=== PATIENT | female | born 1950 | race Caucasian/White ===

== ENCOUNTER 2017-05-23 10:36 | Emergency (ER) | payer OTHER ==
[~2017-05-23] VITALS: Ht 149.9 cm; Wt 71.0 kg
[~2017-05-23 10:36] MED LIST: LEVO75TA33 PO; MEDLIST; PRLSR20 PO
[2017-05-23 10:49] VITALS: TEMP 36.8; Ht 149.9 cm; Wt 71.0 kg
[2017-05-23] MEDS ORDERED: MECL1TAB40 PO (11:06)
[2017-05-23] MEDS ORDERED: LEVO50TA6 PO (11:06)
[2017-05-23] MEDS ORDERED: LATA0.5S OPR (11:06)
--- NOTE | 2017-05-23 11:23 | EMERGENCY ROOM VISIT NOTE ---
History Report prepared by Marlen: Frankie Palma Under the Supervision of: Dr. Susanna Emery D.O. First contact with patient: 11:09 Chief Complaint: ARM PAIN Stated Complaint: DIZZINESS, HEADACHE, NAUSEA, LEFT SIDE PAIN Nursing Triage Summary: pt reports intermittent headache at base of skull, dizziness, lightheadedness, nausea over past 2 days no falls, no loc some tingling in left wrist, and leg no weakness History of Present Illness The patient is a 67 year old female who presents to the Emergency Room with complaints of episodes of left hand and leg pain that started 2 days ago. She states that she also has tingling in those areas. The patient says that the pain is only around her left wrist and left hand. She says that there is no pain in her left foot. She adds that during the episodes, she gets tingling in those areas, as well as some weakness. The patient describes the weakness as "losing control". She says that she is right-handed. The patient states that the episodes last only a couple minutes, and are not related to activity, although she notes that she has started doing some exercising recently. The patient adds that yesterday, she had a one-hour episode of pain in her neck and into the base of her skull, and ever since then she has been getting the pain intermittently. She notes that she started getting nausea after that pain started. She says that she has had dizziness issues for a while, and started medication for that last summer, but has not had any other recent medication changes. The patient says that her eyes feel "tired", and light has bothered her a bit. The patient denies any chest pain or palpitations. She says that she has never had symptoms like this before. The patient notes no history of back or neck problems. She denies any changes in her bowel movements. The patient adds that she has had an increased urinary frequency over the past 2 days. The patient states that she does not currently feel any of the pain, but still feels a bit nauseous. Source of History: patient Onset: 2 days ago Position: hand (left), leg (left) Quality: other (tingling, pain) Timing: other (episodes) Associated Symptoms: + headache, + neck pain, + nausea, + urinary symptoms, + weakness (left hand and left leg), No chest pain (or palpitations) Note: Associated symptoms: Eyes feel tired. Review of Systems See HPI for pertinent positives & negatives. A total of 10 systems reviewed and were otherwise negative. Past Medical & Surgical Medical Problems: (1) Asthma (2) Gallbladder disease Family History FHx: cancer Heart disease Social History Smoking Status: Never Smoker Smokeless Tobacco Use: No Alcohol Use: none Marital Status: Housing Status: lives with family Current/Historical Medications Scheduled Latanoprost (Xalatan 0.005% Oph Kelsey), 1 DROPS OPR HS Levothyroxine Sodium (Levothyroxine Sodium), 50 MCG PO DAILY Scheduled PRN Meclizine HCl (Meclizine HCl), 12.5 MG PO TID PRN for Dizziness or Vertigo Allergies Coded Allergies: No Known Allergies (Verified Allergy, Unknown, 01/11/09) Physical Exam Vital Signs Date Time Temp Pulse Resp B/P (MAP) Pulse Ox O2 Delivery O2 Flow Rate FiO2 05/23/17 16:25 82 16 142/73 98 05/23/17 15:05 58 15 149/85 98 Room Air 05/23/17 12:40 61 21 138/96 100 Room Air 05/23/17 12:13 62 05/23/17 11:36 74 144/85 141/88 147/86 05/23/17 10:49 36.8 67 20 146/86 98 Room Air Physical Exam GENERAL: alert, well appearing, well nourished, no distress, non-toxic EYE EXAM: normal conjunctiva, PERRL and EOM's grossly intact OROPHARYNX: no exudate, no erythema, lips, buccal mucosa, and tongue normal and mucous membranes are moist NECK: supple, no nuchal rigidity, no adenopathy, non-tender, no reproducible neck or head pain. FROM without pain or recurrence of weakness. LUNGS: Clear to auscultation. Normal chest wall mechanics, no w/r/r HEART: no murmurs, S1 normal and S2 normal ABDOMEN: abdomen soft, non-tender, normo-active bowel sounds, no masses, no rebound or guarding. BACK: Back is symmetrical on inspection and there is no deformity, no midline tenderness, no CVA tenderness. SKIN: no rashes and no bruising UPPER EXTREMITIES: upper extremities are grossly normal. No reproducible pain or weakness at this time. LOWER EXTREMITIES: No pitting edema. No reproducible pain or weakness at this time. NEURO EXAM: Normal sensorium, cranial nerves II-XII grossly intact, normal speech, no gross weakness of arms. Mild difficulty with finger to nose on the left but I think more likely from BP cuff on that arm. 2/4 patellar reflexes bilaterally. Gross sensation intact. Medical Decision & Procedures ER Provider Diagnostic Interpretation: Radiology results have been interpreted by the radiologist and reviewed by me. ANGIOGRAPHY HEAD COMBO CLINICAL HISTORY: 67 years-old Female presenting with headache, left-sided numbness, neck pain, dizziness. TECHNIQUE: Multidetector CT angiography of the head was performed before and after the administration of intravenous contrast. 3-D volumetric and/or maximum intensity projection (MIP) images were subsequently reconstructed for review. IV contrast: 117 mL of Optiray 320. A dose lowering technique was used consistent with the principles of ALARA (as low as reasonably achievable). COMPARISON: None. CT DOSE (mGy.cm): The estimated cumulative dose is 941.07 mGycm. 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 NONCONTRAST CT HEAD: Ventricles and sulci normal in size. Brain parenchyma normal in appearance with preserved soto-white differentiation. No mass effect or midline shift. No hemorrhage or acute territorial infarct. No extra-axial fluid collection. Paranasal sinuses and mastoid air cells clear. Calvarium intact. CTA HEAD: Anterior circulation: Atherosclerosis of the cavernous segments of the internal carotid arteries without significant narrowing. Bilateral intracranial portions of the ICAs remain patent to the level of the carotid termini. Hypoplastic A1 segment of the right anterior cerebral artery. Anterior and middle cerebral arteries patent bilaterally. Anterior communicating artery patent. Posterior circulation: Codominant vertebral arteries. Intradural portions of the vertebral arteries patent. Posterior inferior cerebellar arteries patent. Basilar artery patent. Anterior inferior cerebellar arteries poorly visualized. Superior cerebellar and posterior cerebral arteries patent. Posterior communicating arteries hypoplastic bilaterally. Dural venous sinuses: Patent. IMPRESSION: 1. No acute intracranial pathology. 2. Atherosclerosis of the cavernous segments of the ICAs without significant narrowing. 3. No evidence of aneurysm, focal vessel occlusion, or significant stenosis of the intracranial arteries. Electronically signed by: Kvng Garcia M.D. 05/23/2017 2:07 PM Dictated Date/Time: 05/23/2017 2:00 PM CHEST ONE VIEW PORTABLE CLINICAL HISTORY: 67 years-old Female presenting with chest pain. TECHNIQUE: Portable upright AP view of the chest was obtained. COMPARISON: 03/13/2008. FINDINGS: Atherosclerosis of the aortic arch. Cardiac silhouette top normal in size. Lungs and pleural spaces clear. Osseous structures normal. Upper abdomen normal. IMPRESSION: 1. No acute cardiopulmonary disease. Electronically signed by: Kvng Garcia M.D. 05/23/2017 11:56 AM Dictated Date/Time: 05/23/2017 11:56 AM Laboratory Results 05/23/17 11:07 Red Blood Count 4.65, Mean Corpuscular Volume 86.0, Mean Corpuscular Hemoglobin 29.0, Mean Corpuscular Hemoglobin Concent 33.8, Mean Platelet Volume 9.8, Neutrophils (%) (Auto) 76.7, Lymphocytes (%) (Auto) 15.7, Monocytes (%) (Auto) 6.5, Eosinophils (%) (Auto) 0.5, Basophils (%) (Auto) 0.3, Neutrophils # (Auto) 6.13, Lymphocytes # (Auto) 1.25, Monocytes # (Auto) 0.52, Eosinophils # (Auto) 0.04, Basophils # (Auto) 0.02 05/23/17 11:07 Test 05/23/17 11:07 05/23/17 11:51 White Blood Count 7.98 K/uL (4.8-10.8) Red Blood Count 4.65 M/uL (4.2-5.4) Hemoglobin 13.5 g/dL (12.0-16.0) Hematocrit 40.0 % (37-47) Mean Corpuscular Volume 86.0 fL (80-100) Mean Corpuscular Hemoglobin 29.0 pg (25-34) Mean Corpuscular Hemoglobin Concent 33.8 g/dl (32-36) Platelet Count 295 K/uL (130-400) Mean Platelet Volume 9.8 fL (7.4-10.4) Neutrophils (%) (Auto) 76.7 % Lymphocytes (%) (Auto) 15.7 % Monocytes (%) (Auto) 6.5 % Eosinophils (%) (Auto) 0.5 % Basophils (%) (Auto) 0.3 % Neutrophils # (Auto) 6.13 K/uL (1.4-6.5) Lymphocytes # (Auto) 1.25 K/uL (1.2-3.4) Monocytes # (Auto) 0.52 K/uL (0.11-0.59) Eosinophils # (Auto) 0.04 K/uL (0-0.5) Basophils # (Auto) 0.02 K/uL (0-0.2) RDW Standard Deviation 39.1 fL (36.4-46.3) RDW Coefficient of Variation 12.4 % (11.5-14.5) Immature Granulocyte % (Auto) 0.3 % Immature Granulocyte # (Auto) 0.02 K/uL (0.00-0.02) Anion Gap 7.0 mmol/L (3-11) Est Creatinine Clear Calc Drug Dose 55.9 ml/min Estimated GFR () 82.8 Estimated GFR (Non- 71.4 BUN/Creatinine Ratio 14.1 (10-20) Calcium Level 9.6 mg/dl (8.5-10.1) Magnesium Level 2.1 mg/dl (1.8-2.4) Total Bilirubin 0.6 mg/dl (0.2-1) Aspartate Amino Transf (AST/SGOT) 21 U/L (15-37) Alanine Aminotransferase (ALT/SGPT) 23 U/L (12-78) Alkaline Phosphatase 85 U/L (45-117) Troponin I < 0.015 ng/ml (0-0.045) Pro-B-Type Natriuretic Peptide 73 pg/ml (0-900) Total Protein 7.9 gm/dl (6.4-8.2) Albumin 3.7 gm/dl (3.4-5.0) Globulin 4.2 gm/dl (2.5-4.0) Albumin/Globulin Ratio 0.9 (0.9-2) Thyroid Stimulating Hormone (TSH) 2.970 uIu/ml (0.300-4.500) Urine Color YELLOW Urine Appearance CLEAR (CLEAR) Urine pH 8.5 (4.5-7.5) Urine Specific [place] 1.006 (1.000-1.030) Urine Protein NEG (NEG) Urine Glucose (UA) NEG (NEG) Urine Ketones NEG (NEG) Urine Occult Blood NEG (NEG) Urine Nitrite NEG (NEG) Urine Bilirubin NEG (NEG) Urine Urobilinogen NEG (NEG) Urine Leukocyte Esterase TRACE (NEG) Urine WBC (Auto) 1-5 /hpf (0-5) Urine RBC (Auto) 0-4 /hpf (0-4) Urine Hyaline Casts (Auto) 0 /lpf (0-5) Urine Epithelial Cells (Auto) 10-20 /lpf (0-5) Urine Bacteria (Auto) NEG (NEG) Laboratory results per my review. ECG Per My Interpretation Indication: nausea Rate (beats per minute): 61 Rhythm: normal sinus Findings: no acute ischemic change, no ectopy, other (normal axis, normal intervals) ED Course 1113: The patient was evaluated in room C12B. A complete history and physical exam was performed. 1533: I reevaluated the patient and she feels fine with no recurrence of symptoms. She would like to go home, and she will be discharged if she passes the walk test. She expresses understanding and agreement of the treatment plan. Medical Decision Differential Diagnosis includes but is not limited to dehydration, stroke, anemia, hypoglycemia, hyponatremia, hypernatremia, urinary tract infection, pneumonia, bronchitis, sepsis, gastroenteritis, additional abdominal pathology, metabolic abnormalities, infections, headache, tension headache, cluster headache, migraine, subarachnoid hemorrhage, meningitis, mass, central venous thrombus, concussion, trauma and epidural/subdural hemorrhage. Pt had no recurrence of any symptoms while here. Pt ambulated with a steady gait to the bathroom several times. No reproducible pain. I do not suspect aortic dissection, svc syndrome, UE dvt, hypertensive urgency. No evidence of cva, vertebral dissection. I do not suspect cerebellar infarct/bleed/mass. Labs and imaging reassuring. Possible related to arthritis/peripheral neuropathy, radicular pain. No LE findings to suggest cauda equina, acute lumbar nerve impingement, discitis, epidural abscess/hematoma. Pt no neuro findings on exam or repeat evaluations. Discussed with her possible need for neurology eval if sx persist. Discussed given recent exercise could be related to musculoskeletal strain/injury, sx could also be found with entities such as MS which would require additional evaluation. I do not suspect occult infection. Discussed with pt close f/u with her PCP, sx to watch/return for, she verbalized understanding and was agreeable with plan. All questions answered at bedside. Pt well appearing at time of dc, VS stable. Medication Reconcilliation Current Medication List: was personally reviewed by me Blood Pressure Screening Patient's blood pressure: Elevated blood pressure Blood pressure disposition: Elevated BP felt to be situational Impression Primary Impression: Neck pain Additional Impressions: Paresthesia Arm pain Leg pain Scribe Attestation The scribe's documentation has been prepared under my direction and personally reviewed by me in its entirety. I confirm that the note above accurately reflects all work, treatment, procedures, and medical decision making performed by me. Departure Information Dispostion Home / Self-Care Referrals Avril Christianson M.D. (PCP) Patient Instructions My [facility] Additional Instructions Please call and follow-up with your family doctor as a precaution. If you continue to have intermittent symptoms, they may send you for additional testing or refer you to a neurologist. Please take your regular medications as prescribed. Please make sure you are drinking plenty of water. Please avoid any strenuous activity or heavy lifting until you are feeling better. If you have any worsening pain or numbness, developed increased neck pain, headaches, vision changes, dizziness, chest pain, trouble breathing, swelling in your arm or leg, you have any other new concerns, please return the emergency room. Problem Qualifiers Additional Impressions: Arm pain Laterality: left Qualified Codes: M79.602 - Pain in left arm Leg pain Laterality: left Qualified Codes: M79.605 - Pain in left leg
[2017-05-23] MEDS ORDERED: OPTIRAY 320 IV PRN (11:45)
[2017-05-23 11:46] LABS: BASO % 0.3 %; BASO ABS # 0.02 K/uL (0-0.2); EOS % 0.5 %; EOS ABS # 0.04 K/uL (0-0.5); HEMOGLOBIN 13.5 g/dL (12.0-16.0); IG# 0.02 K/uL (0.00-0.02); LYMPH % 15.7 %; LYMPH ABS # 1.25 K/uL (1.2-3.4); MEAN CORPUSCULAR HGB CONC 33.8 g/dl (32-36); MEAN PLATELET VOLUME 9.8 fL (7.4-10.4); MONO % 6.5 %; MONO ABS # 0.52 K/uL (0.11-0.59); NEUT % 76.7 %; NEUT ABS # 6.13 K/uL (1.4-6.5); PLATELET COUNT 295 K/uL (130-400); RED CELL DISTRIBUTION WIDTH CV 12.4 % (11.5-14.5); RED CELL DISTRIBUTION WIDTH SD 39.1 fL (36.4-46.3); WHITE BLOOD COUNT 7.98 K/uL (4.8-10.8)
[2017-05-23 11:52] LABS: ALBUMIN 3.7 gm/dl (3.4-5.0); ALKALINE PHOSPHATASE 85 U/L (45-117); ALT/SGPT 23 U/L (12-78); AST/SGOT 21 U/L (15-37); BLOOD UREA NITROGEN 12 mg/dl (7-18); CALCIUM 9.6 mg/dl (8.5-10.1); CARBON DIOXIDE 26 mmol/L (21-32); CREATININE 0.85 mg/dl (0.60-1.20); GLUCOSE 127 mg/dl (70-99); POTASSIUM 3.8 mmol/L (3.5-5.1); SODIUM 138 mmol/L (136-145)
--- NOTE | 2017-05-23 11:58 | DIAGNOSTIC IMAGING REPORT ---
CHEST ONE VIEW PORTABLE CLINICAL HISTORY: 67 years-old Female presenting with chest pain. TECHNIQUE: Portable upright AP view of the chest was obtained. COMPARISON: 03/13/2008. FINDINGS: Atherosclerosis of the aortic arch. Cardiac silhouette top normal in size. Lungs and pleural spaces clear. Osseous structures normal. Upper abdomen normal. IMPRESSION: 1. No acute cardiopulmonary disease. Electronically signed by: Kvng Garcia M.D. 05/23/2017 11:56 AM Dictated Date/Time: 05/23/2017 11:56 AM
[2017-05-23 12:03] LABS: TOTAL PROTEIN 7.9 gm/dl (6.4-8.2)
--- NOTE | 2017-05-23 14:09 | DIAGNOSTIC IMAGING REPORT ---
ANGIOGRAPHY HEAD COMBO CLINICAL HISTORY: 67 years-old Female presenting with headache, left-sided numbness, neck pain, dizziness. TECHNIQUE: Multidetector CT angiography of the head was performed before and after the administration of intravenous contrast. 3-D volumetric and/or maximum intensity projection (MIP) images were subsequently reconstructed for review. IV contrast: 117 mL of Optiray 320. A dose lowering technique was used consistent with the principles of ALARA (as low as reasonably achievable). COMPARISON: None. CT DOSE (mGy.cm): The estimated cumulative dose is 941.07 mGycm. 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 NONCONTRAST CT HEAD: Ventricles and sulci normal in size. Brain parenchyma normal in appearance with preserved soto-white differentiation. No mass effect or midline shift. No hemorrhage or acute territorial infarct. No extra-axial fluid collection. Paranasal sinuses and mastoid air cells clear. Calvarium intact. CTA HEAD: Anterior circulation: Atherosclerosis of the cavernous segments of the internal carotid arteries without significant narrowing. Bilateral intracranial portions of the ICAs remain patent to the level of the carotid termini. Hypoplastic A1 segment of the right anterior cerebral artery. Anterior and middle cerebral arteries patent bilaterally. Anterior communicating artery patent. Posterior circulation: Codominant vertebral arteries. Intradural portions of the vertebral arteries patent. Posterior inferior cerebellar arteries patent. Basilar artery patent. Anterior inferior cerebellar arteries poorly visualized. Superior cerebellar and posterior cerebral arteries patent. Posterior communicating arteries hypoplastic bilaterally. Dural venous sinuses: Patent. IMPRESSION: 1. No acute intracranial pathology. 2. Atherosclerosis of the cavernous segments of the ICAs without significant narrowing. 3. No evidence of aneurysm, focal vessel occlusion, or significant stenosis of the intracranial arteries. Electronically signed by: Kvng Garcia M.D. 05/23/2017 2:07 PM Dictated Date/Time: 05/23/2017 2:00 PM
[2017-05-23] MEDS ORDERED: KETOROLAC TROMETHAMINE 30 MG/ML VIAL IV STA (14:41)
[2017-05-23 16:25] VITALS: BP 142/73; PULSE 82; O2SAT 98
== END 2017-05-23 16:30 | disposition home or self-care (01) ==
LOC: C.EDB 10:37 → C.EDC 16:30
DX: M54.2 Cervicalgia (principal); R20.2 Paresthesia of skin; M79.602 Pain in left arm; M79.605 Pain in left leg; J45.909 Unspecified asthma, uncomplicated; K82.9 Disease of gallbladder, unspecified; Z80.9 Family history of malignant neoplasm, unspecified; Z82.49 Family history of ischemic heart disease and other diseases of the circulatory system; Z79.899 Other long term (current) drug therapy